=== PATIENT | female | born 1950 | race Caucasian/White ===

== ENCOUNTER 2023-05-17 16:21 | Inpatient (IN) | payer OTHER ==
[~2023-05-17] VITALS: Ht 154.9 cm; Wt 112.2 kg
[2023-05-17 17:13] LABS: Basophils # (auto) 0.1 10 ^3/uL (0-0.2); Basophils % (auto) 0.7 % (0.0-2.0); Eosinophils # (auto) 0.1 10 ^3/uL (0-0.8); Eosinophils % (auto) 1.5 % (0.0-7.0); Lymphocytes # (auto) 2.2 10 ^3/uL (0.4-5.4); Lymphocytes % (auto) 26.7 % (10.0-50.0); Mean Corpuscular Hemoglobin 30.5 pg (28.0-32.0); Mean Corpuscular Hgb Conc. 34.2 g/dL (32.0-36.0); Mean Corpuscular Volume 89.2 fL (80.0-100.0); Monocytes # (auto) 0.6 10 ^3/uL (0-1.3); Monocytes % (auto) 6.8 % (0.0-12.0); Neutrophils # (auto) 5.2 10 ^3/uL (1.6-8.6); Neutrophils % (auto) 64.3 % (37.0-80.0); Nucleated Red Blood Cells % 0.1 %; Red Blood Cells 4.93 10^6/uL (4.0-5.20); Red Cell Distribution Width 14.1 % (11.8-14.3); White Blood Cell 8.1 10^3/uL (4.4-10.8)
[2023-05-17 17:17] LABS: Urine Bacteria NONE SEEN /hpf (None Seen); Urine Blood Negative /uL (Negative); Urine Clarity Clear (Clear); Urine Color Colorless (Yellow); Urine Protein, UAD Negative (Negative); Urine Specific Gravity 1.012 (1.001-1.035); Urine Urobilinogen Normal (Negative); Urine WBC 1 /hpf (0 - 5)
[2023-05-17 17:25] LABS: Alanine Aminotransferase 24 U/L (7-40); Alkaline Phosphatase 134 U/L (46-116); Anion Gap 7 (5-15); Aspartate Aminotransferase 15 U/L (13-40); BUN/Creatinine Ratio 13.9 (10.0-20.0); Bilirubin, Total 0.6 mg/dL (0.2-1.0); Blood Urea Nitrogen 23 mg/dL (9-23); Calcium 9.2 mg/dL (8.7-10.4); Carbon Dioxide 31 mmol/L (20-30); Chloride 100 mmol/L (98-107); Glucose 111 mg/dL (74-106); Sodium 138 mmol/L (136-145); Total Protein 7.5 g/dL (5.7-8.2)
[2023-05-17 17:28] LABS: INR 1.05 (0.9-1.15); Partial Thromboplastin Time 29.1 SEC (24.5-34.5)
[2023-05-17 17:50] LABS: Potassium 2.9 mmol/L (3.5-5.1)
[2023-05-17] MEDS ORDERED: POTASSIUM EFFERVESENT TAB 25 MEQ PO ONE (18:15)
[2023-05-17 19:38] LABS: COVID19 ANTIGEN SOFIA FIA NEGATIVE (NEGATIVE); Rapid Influenza A Negative (Negative); Rapid Influenza B Negative (Negative)
[2023-05-17] MEDS: POTASSIUM CHL 20MEQ/100ML 100 ML IV SCH ×2 (20:48→23:01)
[2023-05-17] MEDS ORDERED: SODIUM CHLORIDE 0.9% 1,000 ML IV ONE (21:00)
[2023-05-18] VITALS (7 sets, daily range): BP systolic 117–136; BP diastolic 51–76; PULSE 71–100; RESP 14–21; TEMP 97.6–98.4; O2SAT 94–99
[2023-05-18] MEDS ORDERED: ACETAMINOPHEN 325 MG TAB PO ONE (02:30)
[2023-05-18] MEDS ORDERED: ALBU2TAB11 PO (02:50)
[2023-05-18] MEDS ORDERED: LOSA25TA15 PO (02:50)
[2023-05-18] MEDS ORDERED: PAR20T PO (02:50)
[2023-05-18] MEDS ORDERED: ZINC100T5 PO (02:50)
[2023-05-18] MEDS ORDERED: LEVO25TA6 PO (02:50)
[2023-05-18] MEDS ORDERED: TRAM50TA2 PO (02:50)
[2023-05-18] MEDS ORDERED: ATOR20TA50 PO (02:50)
[2023-05-18] MEDS ORDERED: BIOT5TAB3 PO (02:50)
[2023-05-18] MEDS ORDERED: TRIATAB3 PO (02:50)
[2023-05-18] MEDS ORDERED: GABA-1308 PO (02:50)
[2023-05-18] MEDS ORDERED: MONT-8 PO (02:50)
[2023-05-18] MEDS ORDERED: SITA50TA PO (02:50)
[2023-05-18] MEDS ORDERED: METO-158 PO (02:50)
[2023-05-18 03:09] LABS: Alanine Aminotransferase 29 U/L (7-40); Albumin 3.9 g/dL (3.2-4.8); Alkaline Phosphatase 122 U/L (46-116); Anion Gap 8 (5-15); Aspartate Aminotransferase 31 U/L (13-40); BUN/Creatinine Ratio 12.6 (10.0-20.0); Blood Urea Nitrogen 16 mg/dL (9-23); Calcium 8.7 mg/dL (8.7-10.4); Carbon Dioxide 26 mmol/L (20-30); Chloride 104 mmol/L (98-107); Glucose 125 mg/dL (74-106); Potassium 3.2 mmol/L (3.5-5.1); Sodium 138 mmol/L (136-145)
[2023-05-18 03:10] LABS: Bilirubin, Total 0.8 mg/dL (0.2-1.0); Total Protein 7.5 g/dL (5.7-8.2)
[2023-05-18] MEDS ORDERED: POTASSIUM CHL 20 Meq TABLET PO ONE (05:15)
[2023-05-18] MEDS ORDERED: ONDANSETRON HCL 4 MG/2 ML VIAL IV PRN (05:15)
[2023-05-18] MEDS ORDERED: HYDROcodone-ACET 5/325MG TAB PO PRN (05:15)
[2023-05-18] MEDS ORDERED: DOCUSATE SOD 100 MG CAP PO PRN (05:15)
[2023-05-18] MEDS ORDERED: ACETAMINOPHEN 325 MG TAB PO PRN (05:15)
[2023-05-18] MEDS ORDERED: MORPHINE SULFATE INJ 2 MG/ml SYRG IV PRN (05:45)
[2023-05-18] MEDS ORDERED: NITROGLYCERIN 0.4 MG SL TAB SL PRN (05:45)
[2023-05-18] MEDS ORDERED: GABAPENTIN 100 MG CAP PO ONE (06:30)
[2023-05-18] MEDS: SODIUM CHLORIDE 0.9% 1,000 ML IV SCH ×2 (06:41→21:55)
[2023-05-18] MEDS: LEVOTHYROXINE SODIUM 25 MCG TAB PO SCH (06:41)
[2023-05-18] MEDS: ASPirin 81 mg TAB PO SCH (10:05)
[2023-05-18] MEDS ORDERED: POTASSIUM EFFERVESENT TAB 25 MEQ PO ONE ×2 (10:45→12:00)
[2023-05-18] MEDS: MECLIZINE HCL 25 MG TAB PO SCH ×2 (13:02→21:37)
[2023-05-18] MEDS: GABAPENTIN 100 MG CAP PO SCH ×2 (13:03→21:38)
[2023-05-18 13:29] LABS: Triglycerides 87 mg/dL (< 150)
[2023-05-18 13:30] LABS: LDL Cholesterol 75 mg/dL (< 100)
[2023-05-18 13:31] LABS: Cholesterol 131 mg/dL (< 200); HDL Cholesterol 44 mg/dL (40-59)
[2023-05-18] MEDS: METOPROLOL TARTRATE 25 MG TAB PO SCH ×2 (21:38→22:00)
[2023-05-18] MEDS ORDERED: ATORVASTATIN 20 MG TAB PO SCH ×2 (22:00)
[2023-05-19 05:00] VITALS: BP 140/71; PULSE 89; RESP 20; TEMP 97.6; O2SAT 94
[2023-05-19] MEDS: MECLIZINE HCL 25 MG TAB PO SCH (06:13)
[2023-05-19] MEDS: LEVOTHYROXINE SODIUM 25 MCG TAB PO SCH (06:13)
[2023-05-19] MEDS: GABAPENTIN 100 MG CAP PO SCH (06:14)
[2023-05-19 06:16] LABS: Basophils # (auto) 0 10 ^3/uL (0-0.2); Basophils % (auto) 0.6 % (0.0-2.0); Eosinophils # (auto) 0.2 10 ^3/uL (0-0.8); Eosinophils % (auto) 2.5 % (0.0-7.0); Hematocrit 39.9 % (36.0-46.0); Hemoglobin 13.3 g/dL (12.2-16.2); Lymphocytes # (auto) 1.8 10 ^3/uL (0.4-5.4); Lymphocytes % (auto) 26.6 % (10.0-50.0); Mean Corpuscular Hgb Conc. 33.4 g/dL (32.0-36.0); Mean Corpuscular Volume 89.8 fL (80.0-100.0); Monocytes # (auto) 0.6 10 ^3/uL (0-1.3); Monocytes % (auto) 8.3 % (0.0-12.0); Neutrophils # (auto) 4.3 10 ^3/uL (1.6-8.6); Red Blood Cells 4.44 10^6/uL (4.0-5.20); Red Cell Distribution Width 14.3 % (11.8-14.3); White Blood Cell 6.9 10^3/uL (4.4-10.8)
[2023-05-19 06:55] LABS: Alanine Aminotransferase 20 U/L (7-40); Albumin 3.3 g/dL (3.2-4.8); Alkaline Phosphatase 103 U/L (46-116); Anion Gap 6 (5-15); Aspartate Aminotransferase 18 U/L (13-40); BUN/Creatinine Ratio 11.5 (10.0-20.0); Bilirubin, Total 0.7 mg/dL (0.2-1.0); Blood Urea Nitrogen 12 mg/dL (9-23); Calcium 8.2 mg/dL (8.7-10.4); Carbon Dioxide 29 mmol/L (20-30); Chloride 106 mmol/L (98-107); Glucose 118 mg/dL (74-106); Magnesium 1.7 mg/dL (1.6-2.6); Potassium 3.3 mmol/L (3.5-5.1); Sodium 141 mmol/L (136-145)
[2023-05-19 06:56] LABS: Total Protein 6.4 g/dL (5.7-8.2)
[2023-05-19 07:03] LABS: Cholesterol 108 mg/dL (< 200); HDL Cholesterol 34 mg/dL (40-59); LDL Cholesterol 58 mg/dL (< 100); Triglycerides 86 mg/dL (< 150)
[2023-05-19 07:07] LABS: Uric Acid 6.7 mg/dL (3.1-7.8)
[2023-05-19 08:00] VITALS: PULSE 72; PULSE 78; RESP 18; O2SAT 96
[2023-05-19] MEDS ORDERED: POTA10TA51 PO (10:12)
[2023-05-19] MEDS: ASPirin 81 mg TAB PO SCH (10:47)
[2023-05-19] MEDS: METOPROLOL TARTRATE 25 MG TAB PO SCH (10:47)
[2023-05-19 11:21] VITALS: BP 152/84; PULSE 80; RESP 18; O2SAT 96
== END 2023-05-19 12:09 | disposition home or self-care (01) | DRG 67 ==
LOC: ER 16:21 → TELE 05-18 05:42 → TELE-CENTR 05-18 10:55
PROVIDERS: ADMIT Nurse Practitioner Family; ATTEND Nurse Practitioner Family
DX: I65.21 Occlusion and stenosis of right carotid artery (principal); N17.0 Acute kidney failure with tubular necrosis; Z68.42 Body mass index [BMI] 45.0-49.9, adult; E66.01 Morbid (severe) obesity due to excess calories; Z88.2 Allergy status to sulfonamides; E87.6 Hypokalemia; E78.5 Hyperlipidemia, unspecified; E11.22 Type 2 diabetes mellitus with diabetic chronic kidney disease; I12.9 Hypertensive chronic kidney disease with stage 1 through stage 4 chronic kidney disease, or unspecified chronic kidney disease; I16.0 Hypertensive urgency; J45.909 Unspecified asthma, uncomplicated; N18.31 Chronic kidney disease, stage 3a; Z20.822 Contact with and (suspected) exposure to COVID-19; E07.9 Disorder of thyroid, unspecified
CPT/HCPCS: 36415; 70450; 71045; 80053; 80061; 81001; 83036; 83735; 84100; 84443; 84484; 84550; 85025; 85610; 85730; 87426; 87804; 93005; 93306; 93886; G0378; J3480

== ENCOUNTER → 2023-07-05 | Outpatient (CLI) | payer OTHER ==
[~2023-07-05] MED LIST: ALBU0.5N2 IN; ALBU2TAB11 PO; ASPI-543 PO; ATOR20TA PO; ATOR20TA50 PO; BIOT5TAB3 PO; GABA-1308 PO; HYDR2TAB58 PO; LEVO25TA6 PO; LOSA25TA15 PO; METO-158 PO; MONT-8 PO; PAR20T PO; POTA10TA51 PO; SITA50TA PO; TEMA30CA PO; TRAM50TA2 PO; TRIA75TA55 PO; TRIATAB3 PO; ZINC100T5 PO
[2023-07-05 08:28] LABS: Basophils # (auto) 0.1 10 ^3/uL (0-0.2); Eosinophils # (auto) 0.2 10 ^3/uL (0-0.8); Eosinophils % (auto) 3.4 % (0.0-7.0); Hematocrit 43.8 % (36.0-46.0); Hemoglobin 14.7 g/dL (12.2-16.2); Lymphocytes # (auto) 1.6 10 ^3/uL (0.4-5.4); Lymphocytes % (auto) 24.6 % (10.0-50.0); Mean Corpuscular Hemoglobin 30.1 pg (28.0-32.0); Mean Corpuscular Hgb Conc. 33.5 g/dL (32.0-36.0); Mean Corpuscular Volume 89.9 fL (80.0-100.0); Monocytes # (auto) 0.5 10 ^3/uL (0-1.3); Monocytes % (auto) 7.5 % (0.0-12.0); Neutrophils # (auto) 4.2 10 ^3/uL (1.6-8.6); Neutrophils % (auto) 63.5 % (37.0-80.0); Nucleated Red Blood Cells % 0.1 %; Red Blood Cells 4.88 10^6/uL (4.0-5.20); Red Cell Distribution Width 14.2 % (11.8-14.3); White Blood Cell 6.7 10^3/uL (4.4-10.8)
[2023-07-05 09:20] LABS: Alanine Aminotransferase 17 U/L (7-40); Albumin 4.1 g/dL (3.2-4.8); Alkaline Phosphatase 114 U/L (46-116); Anion Gap 6 (5-15); Aspartate Aminotransferase 17 U/L (13-40); BUN/Creatinine Ratio 15.5 (10.0-20.0); Bilirubin, Total 0.5 mg/dL (0.2-1.0); Blood Urea Nitrogen 18 mg/dL (9-23); Calcium 9.2 mg/dL (8.5-10.1); Carbon Dioxide 32 mmol/L (20-30); Chloride 102 mmol/L (98-107); Cholesterol 144 mg/dL (< 200); Glucose 123 mg/dL (74-106); HDL Cholesterol 40 mg/dL (40-59); LDL Cholesterol 82 mg/dL (< 100); Potassium 3.3 mmol/L (3.5-5.1); Sodium 140 mmol/L (136-145); Total Protein 7.5 g/dL (5.7-8.2); Triglycerides 194 mg/dL (< 150)
[2023-07-05 09:24] LABS: Free T3 3.02 pg/mL (2.3-4.2); Free T4 (Free Thyroxine) 0.89 ng/dL (0.89-1.76); T3 Total 1.27 ng/mL (0.60-1.81)
[2023-07-05 10:55] LABS: Magnesium 1.9 mg/dL (1.6-2.6)
== END | disposition home or self-care (01) ==
LOC: LAB 08:14
PROVIDERS: ATTEND Internal Medicine
DX: Z13.29 Encounter for screening for other suspected endocrine disorder (principal); Z00.01 Encounter for general adult medical examination with abnormal findings
CPT/HCPCS: 36415; 80053; 80061; 83036; 83735; 84439; 84443; 84480; 84481; 85025

== ENCOUNTER → 2023-08-13 | Outpatient (CLI) | payer OTHER ==
[2023-08-13 11:06] LABS: Basophils # (auto) 0 10 ^3/uL (0-0.2); Basophils % (auto) 0.6 % (0.0-2.0); Eosinophils # (auto) 0.2 10 ^3/uL (0-0.8); Eosinophils % (auto) 3.1 % (0.0-7.0); Hematocrit 43.4 % (36.0-46.0); Hemoglobin 14.5 g/dL (12.2-16.2); Lymphocytes # (auto) 2.1 10 ^3/uL (0.4-5.4); Lymphocytes % (auto) 28.3 % (10.0-50.0); Mean Corpuscular Hemoglobin 29.8 pg (28.0-32.0); Mean Corpuscular Hgb Conc. 33.4 g/dL (32.0-36.0); Mean Corpuscular Volume 89.4 fL (80.0-100.0); Monocytes # (auto) 0.4 10 ^3/uL (0-1.3); Monocytes % (auto) 5.2 % (0.0-12.0); Neutrophils # (auto) 4.8 10 ^3/uL (1.6-8.6); Neutrophils % (auto) 62.8 % (37.0-80.0); Nucleated Red Blood Cells % 0.1 %; Red Blood Cells 4.85 10^6/uL (4.0-5.20); Red Cell Distribution Width 14.4 % (11.8-14.3); White Blood Cell 7.6 10^3/uL (4.4-10.8)
[2023-08-13 11:12] LABS: Urine Bacteria NONE SEEN /hpf (None Seen); Urine Blood TRACE /uL (Negative); Urine Clarity Clear (Clear); Urine Color Yellow (Yellow); Urine Protein, UAD Negative (Negative); Urine Specific Gravity 1.022 (1.001-1.035); Urine Urobilinogen Normal (Negative); Urine WBC <1 /hpf (0 - 5); Urine pH 6.5 (5.0-8.0)
[2023-08-13 11:51] LABS: Erythrocyte Sedimentation Rate 26 mm/hr (0-20)
[2023-08-13 12:03] LABS: Creatinine, Urine 120.76 mg/dL (30.0-125.0)
[2023-08-13 12:06] LABS: Micro Albumin < 3.0 mg/L (<30.0)
[2023-08-13 12:09] LABS: Free T3 3.16 pg/mL (2.3-4.2); Free T4 (Free Thyroxine) 0.82 ng/dL (0.89-1.76)
[2023-08-13 12:10] LABS: Alanine Aminotransferase 21 U/L (7-40); Albumin 4.1 g/dL (3.2-4.8); Alkaline Phosphatase 101 U/L (46-116); Anion Gap 8 (5-15); Aspartate Aminotransferase 15 U/L (13-40); BUN/Creatinine Ratio 17.8 (10.0-20.0); Bilirubin, Total 0.6 mg/dL (0.2-1.0); Blood Urea Nitrogen 19 mg/dL (9-23); CRP High Sensitivity 0.46 mg/dL (<1.0); Calcium 9.5 mg/dL (8.5-10.1); Carbon Dioxide 30 mmol/L (20-30); Chloride 102 mmol/L (98-107); Cholesterol 137 mg/dL (< 200); Glucose 125 mg/dL (74-106); HDL Cholesterol 41 mg/dL (40-59); LDL Cholesterol 78 mg/dL (< 100); Potassium 3.4 mmol/L (3.5-5.1); Sodium 140 mmol/L (136-145); Total Protein 7.3 g/dL (5.7-8.2); Triglycerides 184 mg/dL (< 150)
[2023-08-13 13:20] LABS: Magnesium 1.9 mg/dL (1.6-2.6)
[2023-08-14 07:06] LABS: Rheumatoid Arthritis Factor <10.0 IU/mL (<14.0)
[2023-08-14 12:06] LABS: Anti-Nuclear Antibody Direct Negative (Negative)
== END | disposition home or self-care (01) ==
LOC: LAB 10:27
PROVIDERS: ATTEND Nurse Practitioner Gerontology
DX: Z00.01 Encounter for general adult medical examination with abnormal findings (principal)
CPT/HCPCS: 36415; 80053; 80061; 81001; 82043; 82570; 83036; 83735; 84300; 84439; 84443; 84481; 85025; 85652; 86038; 86141; 86431; 87086

== ENCOUNTER → 2023-10-02 | Outpatient (CLI) | payer OTHER ==
[2023-10-02 10:29] LABS: Basophils # (auto) 0 10 ^3/uL (0-0.2); Basophils % (auto) 0.7 % (0.0-2.0); Eosinophils # (auto) 0.2 10 ^3/uL (0-0.8); Eosinophils % (auto) 2.6 % (0.0-7.0); Hematocrit 46.1 % (36.0-46.0); Hemoglobin 15.3 g/dL (12.2-16.2); Lymphocytes # (auto) 1.6 10 ^3/uL (0.4-5.4); Lymphocytes % (auto) 25.9 % (10.0-50.0); Mean Corpuscular Hemoglobin 30.2 pg (28.0-32.0); Mean Corpuscular Hgb Conc. 33.2 g/dL (32.0-36.0); Monocytes # (auto) 0.4 10 ^3/uL (0-1.3); Monocytes % (auto) 6.6 % (0.0-12.0); Neutrophils # (auto) 3.9 10 ^3/uL (1.6-8.6); Neutrophils % (auto) 64.2 % (37.0-80.0); Red Blood Cells 5.06 10^6/uL (4.0-5.20); Red Cell Distribution Width 14.1 % (11.8-14.3); White Blood Cell 6.1 10^3/uL (4.4-10.8)
[2023-10-02 11:10] LABS: Magnesium 1.9 mg/dL (1.6-2.6)
[2023-10-02 11:30] LABS: Free T4 (Free Thyroxine) 0.97 ng/dL (0.89-1.76)
[2023-10-02 11:31] LABS: T3 Total 1.17 ng/mL (0.60-1.81)
== END | disposition home or self-care (01) ==
LOC: LAB 10:07
PROVIDERS: ATTEND Nurse Practitioner Gerontology
DX: Z00.01 Encounter for general adult medical examination with abnormal findings (principal); I10 Essential (primary) hypertension; E78.49 Other hyperlipidemia; E03.9 Hypothyroidism, unspecified; E87.6 Hypokalemia
CPT/HCPCS: 36415; 80061; 83036; 83735; 84439; 84443; 84480; 85025

== ENCOUNTER → 2023-10-07 | Outpatient (CLI) | payer OTHER ==
[2023-10-07 11:13] LABS: Calcium 9.4 mg/dL (8.5-10.1); Chloride 104 mmol/L (98-107); Potassium 3.9 mmol/L (3.5-5.1); Sodium 141 mmol/L (136-145)
[2023-10-07 11:14] LABS: Anion Gap 4 (5-15); Carbon Dioxide 33 mmol/L (20-30)
[2023-10-07 11:19] LABS: BUN/Creatinine Ratio 17.5 (10.0-20.0); Blood Urea Nitrogen 21 mg/dL (9-23); Glucose 107 mg/dL (74-106)
[2023-10-07 12:54] LABS: Creatinine, Urine 114.06 mg/dL (30.0-125.0)
[2023-10-07 12:56] LABS: Micro Albumin < 3.0 mg/L (<30.0)
== END | disposition home or self-care (01) ==
LOC: LAB 09:48
PROVIDERS: ATTEND Internal Medicine Hematology & Oncology
DX: E11.22 Type 2 diabetes mellitus with diabetic chronic kidney disease (principal); N18.9 Chronic kidney disease, unspecified; E11.69 Type 2 diabetes mellitus with other specified complication
CPT/HCPCS: 36415; 80048; 82043; 82570; 83036

== ENCOUNTER → 2023-12-31 | Outpatient (CLI) | payer OTHER ==
[~2023-12-31] MED LIST changes: +LOSA-533 PO; -LOSA25TA15 PO; +POTA-36 PO; -POTA10TA51 PO
[2023-12-31 09:59] LABS: Urine Bacteria FEW /hpf (None Seen); Urine Blood Negative /uL (Negative); Urine Clarity Clear (Clear); Urine Color Light-Yellow (Yellow); Urine Protein, UAD Negative (Negative); Urine Specific Gravity 1.018 (1.001-1.035); Urine Urobilinogen Normal (Negative); Urine WBC <1 /hpf (0 - 5); Urine pH 6.5 (5.0-9.0)
[2023-12-31 10:13] LABS: Protein, Urine 20.9 mg/dL (0.0-11.9)
[2023-12-31 10:16] LABS: Creatinine, Urine 94.79 mg/dL (30.0-125.0); Urine Protein/Creatinine Ratio 0.22
[2023-12-31 10:18] LABS: Potassium 3.7 mmol/L (3.5-5.1)
[2023-12-31 10:19] LABS: Calcium 9.8 mg/dL (8.5-10.1)
[2023-12-31 10:24] LABS: BUN/Creatinine Ratio 19.5 (10.0-20.0)
[2023-12-31 10:26] LABS: Basophils # (auto) 0 10 ^3/uL (0-0.2); Basophils % (auto) 0.6 % (0.0-2.0); Eosinophils # (auto) 0.2 10 ^3/uL (0-0.8); Eosinophils % (auto) 3.1 % (0.0-7.0); Hematocrit 44.4 % (36.0-46.0); Hemoglobin 14.8 g/dL (12.2-16.2); Lymphocytes # (auto) 1.4 10 ^3/uL (0.4-5.4); Lymphocytes % (auto) 24.6 % (10.0-50.0); Mean Corpuscular Hemoglobin 30.3 pg (28.0-32.0); Mean Corpuscular Hgb Conc. 33.4 g/dL (32.0-36.0); Mean Corpuscular Volume 90.6 fL (80.0-100.0); Monocytes # (auto) 0.4 10 ^3/uL (0-1.3); Monocytes % (auto) 7.7 % (0.0-12.0); Neutrophils # (auto) 3.7 10 ^3/uL (1.6-8.6); Red Cell Distribution Width 14.1 % (11.8-14.3); White Blood Cell 5.7 10^3/uL (4.4-10.8)
[2023-12-31 10:27] LABS: Phosphorus 3.6 mg/dL (2.4-5.1)
[2023-12-31 21:25] LABS: Uric Acid 6.7 mg/dL (3.1-7.8)
== END | disposition home or self-care (01) ==
LOC: LAB 09:20
PROVIDERS: ATTEND Internal Medicine
DX: N18.31 Chronic kidney disease, stage 3a (principal); R80.9 Proteinuria, unspecified; R82.90 Unspecified abnormal findings in urine; E78.5 Hyperlipidemia, unspecified; E21.3 Hyperparathyroidism, unspecified; D63.1 Anemia in chronic kidney disease
CPT/HCPCS: 36415; 80069; 81001; 82306; 82570; 83036; 83970; 84156; 84550; 85025

== ENCOUNTER → 2024-02-04 | Outpatient (CLI) | payer OTHER ==
[2024-02-04 10:47] LABS: Urine Bacteria None Seen /hpf (None Seen)
[2024-02-04 11:11] LABS: Urine Blood TRACE /uL (Negative); Urine Clarity Clear (Clear); Urine Color Light-Yellow (Yellow); Urine Protein, UAD Negative (Negative); Urine Specific Gravity 1.019 (1.001-1.035); Urine Urobilinogen Normal (Negative); Urine WBC 2 /hpf (0 - 5); Urine pH 6.5 (5.0-9.0)
[2024-02-04 11:16] LABS: Basophils # (auto) 0 10 ^3/uL (0-0.2); Basophils % (auto) 0.6 % (0.0-2.0); Eosinophils # (auto) 0.1 10 ^3/uL (0-0.8); Eosinophils % (auto) 1.8 % (0.0-7.0); Hematocrit 44.4 % (36.0-46.0); Hemoglobin 15.3 g/dL (12.2-16.2); Lymphocytes # (auto) 1.7 10 ^3/uL (0.4-5.4); Lymphocytes % (auto) 23.7 % (10.0-50.0); Mean Corpuscular Hemoglobin 30.9 pg (28.0-32.0); Mean Corpuscular Hgb Conc. 34.4 g/dL (32.0-36.0); Mean Corpuscular Volume 89.9 fL (80.0-100.0); Monocytes # (auto) 0.5 10 ^3/uL (0-1.3); Monocytes % (auto) 7.2 % (0.0-12.0); Neutrophils # (auto) 4.7 10 ^3/uL (1.6-8.6); Neutrophils % (auto) 66.7 % (37.0-80.0); Red Blood Cells 4.94 10^6/uL (4.0-5.20); Red Cell Distribution Width 14.2 % (11.8-14.3); White Blood Cell 7.1 10^3/uL (4.4-10.8)
[2024-02-04 11:31] LABS: Creatinine, Urine 96.79 mg/dL (30.0-125.0)
[2024-02-04 11:33] LABS: Micro Albumin < 3.0 mg/L (<30.0)
[2024-02-04 11:38] LABS: Alanine Aminotransferase 22 U/L (7-40); Albumin 4.2 g/dL (3.2-4.8); Alkaline Phosphatase 97 U/L (46-116); Anion Gap 6 (5-15); Aspartate Aminotransferase 14 U/L (13-40); Bilirubin, Total 0.6 mg/dL (0.2-1.0); Blood Urea Nitrogen 22 mg/dL (9-23); Calcium 9.9 mg/dL (8.5-10.1); Carbon Dioxide 29 mmol/L (20-30); Chloride 104 mmol/L (98-107); Cholesterol 130 mg/dL (< 200); Glucose 107 mg/dL (74-106); HDL Cholesterol 42 mg/dL (40-59); LDL Cholesterol 68 mg/dL (< 100); Potassium 3.4 mmol/L (3.5-5.1); Sodium 139 mmol/L (136-145); Total Protein 7.6 g/dL (5.7-8.2); Triglycerides 109 mg/dL (< 150)
== END | disposition home or self-care (01) ==
LOC: LAB 10:32
PROVIDERS: ATTEND Internal Medicine
DX: I12.9 Hypertensive chronic kidney disease with stage 1 through stage 4 chronic kidney disease, or unspecified chronic kidney disease (principal); N18.31 Chronic kidney disease, stage 3a; E80.21 Acute intermittent (hepatic) porphyria; M83.1 Senile osteomalacia; Z79.899 Other long term (current) drug therapy
CPT/HCPCS: 36415; 80053; 80061; 81001; 82043; 82570; 83036; 84439; 84443; 85025; 87086

== ENCOUNTER → 2024-07-28 | Outpatient (CLI) | payer OTHER ==
[2024-07-28 10:52] LABS: Urine Bacteria None Seen /hpf (None Seen)
[2024-07-28 11:13] LABS: Basophils # (auto) 0 10 ^3/uL (0-0.2); Basophils % (auto) 0.7 % (0.0-2.0); Eosinophils # (auto) 0.2 10 ^3/uL (0-0.8); Eosinophils % (auto) 2.7 % (0.0-7.0); Hematocrit 44.8 % (36.0-46.0); Hemoglobin 15.1 g/dL (12.2-16.2); Lymphocytes # (auto) 1.7 10 ^3/uL (0.4-5.4); Lymphocytes % (auto) 26.5 % (10.0-50.0); Mean Corpuscular Hemoglobin 30.5 pg (28.0-32.0); Mean Corpuscular Hgb Conc. 33.8 g/dL (32.0-36.0); Mean Corpuscular Volume 90.1 fL (80.0-100.0); Monocytes # (auto) 0.4 10 ^3/uL (0-1.3); Monocytes % (auto) 5.8 % (0.0-12.0); Neutrophils # (auto) 4.2 10 ^3/uL (1.6-8.6); Neutrophils % (auto) 64.3 % (37.0-80.0); Platelet Count (auto) 248 10^3/uL (140-450); Red Blood Cells 4.97 10^6/uL (4.0-5.20); White Blood Cell 6.6 10^3/uL (4.4-10.8)
[2024-07-28 11:32] LABS: Potassium 3.5 mmol/L (3.5-5.1)
[2024-07-28 11:33] LABS: Calcium 9.6 mg/dL (8.7-10.4)
[2024-07-28 11:36] LABS: Protein, Urine 11.9 mg/dL (1-14)
[2024-07-28 11:37] LABS: Creatinine, Urine 73.04 mg/dL (30.0-125.0); Urine Protein/Creatinine Ratio 0.16
[2024-07-28 11:38] LABS: BUN/Creatinine Ratio 18.3 (10.0-20.0)
[2024-07-28 11:40] LABS: Micro Albumin < 3.0 mg/L (<30.0); Phosphorus 3.1 mg/dL (2.4-5.1)
[2024-07-28 12:23] LABS: Uric Acid 7.1 mg/dL (3.1-7.8)
[2024-07-28 13:45] LABS: Urine Blood Negative /uL (Negative); Urine Clarity Turbid (Clear); Urine Color Colorless (Yellow); Urine Protein, UAD Negative (Negative); Urine Specific Gravity 1.014 (1.001-1.035); Urine Urobilinogen Normal (Negative); Urine WBC 2 /hpf (0 - 5)
== END | disposition home or self-care (01) ==
LOC: LAB 10:43
PROVIDERS: ATTEND Internal Medicine
DX: E11.22 Type 2 diabetes mellitus with diabetic chronic kidney disease (principal); E11.21 Type 2 diabetes mellitus with diabetic nephropathy; N18.30 Chronic kidney disease, stage 3 unspecified; D63.1 Anemia in chronic kidney disease; N39.0 Urinary tract infection, site not specified; R80.9 Proteinuria, unspecified; E21.3 Hyperparathyroidism, unspecified; M10.9 Gout, unspecified; E55.9 Vitamin D deficiency, unspecified
CPT/HCPCS: 36415; 80069; 81001; 82043; 82306; 82570; 84156; 84550; 85025

== ENCOUNTER → 2024-09-17 | Outpatient (CLI) | payer OTHER ==
[2024-09-17 09:27] LABS: Urine Bacteria None Seen /hpf (None Seen)
[2024-09-17 09:35] LABS: Basophils # (auto) 0 10 ^3/uL (0-0.2); Basophils % (auto) 0.7 % (0.0-2.0); Eosinophils # (auto) 0.1 10 ^3/uL (0-0.8); Eosinophils % (auto) 2.1 % (0.0-7.0); Hemoglobin 14.8 g/dL (12.2-16.2); Lymphocytes # (auto) 1.5 10 ^3/uL (0.4-5.4); Lymphocytes % (auto) 23.2 % (10.0-50.0); Mean Corpuscular Hemoglobin 30.2 pg (28.0-32.0); Mean Corpuscular Hgb Conc. 33.7 g/dL (32.0-36.0); Mean Corpuscular Volume 89.7 fL (80.0-100.0); Monocytes # (auto) 0.5 10 ^3/uL (0-1.3); Monocytes % (auto) 7.6 % (0.0-12.0); Neutrophils # (auto) 4.3 10 ^3/uL (1.6-8.6); Neutrophils % (auto) 66.4 % (37.0-80.0); Nucleated Red Blood Cells % 0.1 %; Platelet Count (auto) 248 10^3/uL (140-450); Red Blood Cells 4.91 10^6/uL (4.0-5.20); White Blood Cell 6.5 10^3/uL (4.4-10.8)
[2024-09-17 09:49] LABS: Urine Blood Negative /uL (Negative); Urine Clarity Clear (Clear); Urine Color Light-Yellow (Yellow); Urine Protein, UAD Negative (Negative); Urine Specific Gravity 1.013 (1.001-1.035); Urine Squamous Epithelial Cell FEW /hpf (<5); Urine Urobilinogen Normal (Negative); Urine WBC 1 /HPF (0-5)
[2024-09-17 10:02] LABS: Alanine Aminotransferase 19 U/L (7-40); Albumin 4.2 g/dL (3.2-4.8); Anion Gap 6 (5-15); Aspartate Aminotransferase 20 U/L (13-40); BUN/Creatinine Ratio 15.7 (10.0-20.0); Blood Urea Nitrogen 19 mg/dL (9-23); Calcium 9.8 mg/dL (8.7-10.4); Carbon Dioxide 31 mmol/L (20-31); Chloride 103 mmol/L (98-107); Cholesterol 125 mg/dL (< 200); LDL Cholesterol 68 mg/dL (< 100); Potassium 3.7 mmol/L (3.5-5.1); Sodium 140 mmol/L (136-145); Triglycerides 132 mg/dL (< 150)
[2024-09-17 10:03] LABS: Alkaline Phosphatase 117 U/L (46-116); Bilirubin, Total 0.9 mg/dL (0.2-1.0); Glucose 107 mg/dL (74-106); HDL Cholesterol 43 mg/dL (40-59); Total Protein 7.3 g/dL (5.7-8.2)
== END | disposition home or self-care (01) ==
LOC: LAB 09:16
PROVIDERS: ATTEND Internal Medicine
DX: Z00.01 Encounter for general adult medical examination with abnormal findings (principal); R73.03 Prediabetes; E87.6 Hypokalemia; E03.9 Hypothyroidism, unspecified; I12.9 Hypertensive chronic kidney disease with stage 1 through stage 4 chronic kidney disease, or unspecified chronic kidney disease; N18.31 Chronic kidney disease, stage 3a; E78.2 Mixed hyperlipidemia
CPT/HCPCS: 36415; 80053; 80061; 81001; 83036; 84439; 84443; 85025

== ENCOUNTER 2025-02-05 10:06 | Outpatient (CLI) | payer OTHER ==
[2025-02-05 10:40] LABS: Alanine Aminotransferase 17 U/L (7-40); Alkaline Phosphatase 81 U/L (46-116); Anion Gap 7 (5-15); Aspartate Aminotransferase 15 U/L (<34); BUN/Creatinine Ratio 18.4 (10.0-20.0); Blood Urea Nitrogen 21 mg/dL (9-23); Chloride 106 mmol/L (98-107); Glucose 104 mg/dL (74-106); Potassium 3.6 mmol/L (3.5-5.1); Sodium 144 mmol/L (136-145); Total Protein 7.2 g/dL (5.7-8.2)
[2025-02-05 10:41] LABS: Bilirubin, Total 0.7 mg/dL (0.2-1.0); Carbon Dioxide 31 mmol/L (20-31)
== END 2025-02-05 17:00 | disposition home or self-care (01) ==
LOC: LAB 10:06
PROVIDERS: ATTEND Internal Medicine
DX: I12.9 Hypertensive chronic kidney disease with stage 1 through stage 4 chronic kidney disease, or unspecified chronic kidney disease (principal); N18.31 Chronic kidney disease, stage 3a; R73.03 Prediabetes
CPT/HCPCS: 36415; 80053; 83036

== ENCOUNTER 2025-02-09 12:58 | Outpatient (CLI) | payer OTHER ==
[2025-02-09 13:10] LABS: Urine Bacteria None Seen /hpf (None Seen)
[2025-02-09 13:14] LABS: Basophils # (auto) 0 10 ^3/uL (0-0.2); Basophils % (auto) 0.6 % (0.0-2.0); Eosinophils # (auto) 0.2 10 ^3/uL (0-0.8); Hematocrit 45.2 % (36.0-46.0); Hemoglobin 15.2 g/dL (12.2-16.2); Lymphocytes # (auto) 1.6 10 ^3/uL (0.4-5.4); Lymphocytes % (auto) 25.4 % (10.0-50.0); Mean Corpuscular Hemoglobin 30.1 pg (28.0-32.0); Mean Corpuscular Hgb Conc. 33.5 g/dL (32.0-36.0); Mean Corpuscular Volume 89.9 fL (80.0-100.0); Monocytes # (auto) 0.3 10 ^3/uL (0-1.3); Monocytes % (auto) 5.2 % (0.0-12.0); Neutrophils # (auto) 4.1 10 ^3/uL (1.6-8.6); Neutrophils % (auto) 65.8 % (37.0-80.0); Nucleated Red Blood Cells % 0.2 %; Platelet Count (auto) 293 10^3/uL (140-450); Red Blood Cells 5.03 10^6/uL (4.0-5.20); Red Cell Distribution Width 14.3 % (11.8-14.3); White Blood Cell 6.2 10^3/uL (4.4-10.8)
[2025-02-09 13:24] LABS: Urine Blood Negative /uL (Negative); Urine Clarity Clear (Clear); Urine Color Light-Yellow (Yellow); Urine Protein, UAD Negative (Negative); Urine Specific Gravity 1.017 (1.001-1.035); Urine Squamous Epithelial Cell FEW /hpf (<5); Urine Urobilinogen Normal (Negative); Urine WBC 1 /HPF (0-5); Urine pH 6.5 (5.0-9.0)
[2025-02-09 13:27] LABS: Calcium 10.1 mg/dL (8.7-10.4)
[2025-02-09 13:31] LABS: BUN/Creatinine Ratio 18.5 (10.0-20.0)
[2025-02-09 13:33] LABS: Albumin 4.1 g/dL (3.2-4.8); Potassium 3.4 mmol/L (3.5-5.1)
[2025-02-09 13:34] LABS: Phosphorus 3.5 mg/dL (2.4-5.1)
[2025-02-09 13:54] LABS: Uric Acid 8.2 mg/dL (3.1-7.8)
[2025-02-09 14:05] LABS: Protein, Urine 12.4 mg/dL (1-14)
[2025-02-09 14:07] LABS: Creatinine, Urine 97.14 mg/dL (30.0-125.0); Urine Protein/Creatinine Ratio 0.13
== END 2025-02-09 17:00 | disposition home or self-care (01) ==
LOC: LAB 12:58
PROVIDERS: ATTEND Internal Medicine
DX: N18.31 Chronic kidney disease, stage 3a (principal); E21.3 Hyperparathyroidism, unspecified; E78.5 Hyperlipidemia, unspecified; D63.1 Anemia in chronic kidney disease
CPT/HCPCS: 36415; 80069; 81001; 82306; 82570; 83036; 83970; 84156; 84550; 85025

== ENCOUNTER 2025-04-02 10:56 | Outpatient (CLI) | payer OTHER ==
[2025-04-02 11:48] LABS: Triglycerides 116 mg/dL (< 150)
[2025-04-02 11:50] LABS: Cholesterol 134 mg/dL (< 200); HDL Cholesterol 43 mg/dL (40-59)
[2025-04-02 11:58] LABS: Microalb/Creat Ratio, Urine < 3.00
== END 2025-04-02 17:00 | disposition home or self-care (01) ==
LOC: LAB 10:56
PROVIDERS: ATTEND Internal Medicine
DX: E11.69 Type 2 diabetes mellitus with other specified complication (principal); E78.5 Hyperlipidemia, unspecified; E55.9 Vitamin D deficiency, unspecified; Z12.11 Encounter for screening for malignant neoplasm of colon
CPT/HCPCS: 36415; 80061; 82043; 82274; 82306; 82570